=== PATIENT | female | born 1995 | race Caucasian/White ===

== ENCOUNTER 2019-12-30 16:55 | Emergency (ER) | payer MEDICAID ==
[~2019-12-30] VITALS: Ht 167.6 cm; Wt 67.1 kg
[~2019-12-30 16:55] MED LIST: ACET-1603; IBUP200C14; ONDA-144; [UNRECOGNIZED DRUG - CODE]
[2019-12-30 17:20] VITALS: BP 122/83
== END 2019-12-30 19:46 | disposition home or self-care (01) ==
LOC: ER 16:55
DX: Z48.01 Encounter for change or removal of surgical wound dressing (principal); M25.562 Pain in left knee; Z79.899 Other long term (current) drug therapy; Z98.890 Other specified postprocedural states

== ENCOUNTER 2021-09-28 15:15 | Emergency (ER) | payer MEDICAID ==
[~2021-09-28] VITALS: Ht 172.7 cm; Wt 70.8 kg
[2021-09-28 15:18] VITALS: BP 128/81
[2021-09-28] MEDS ORDERED: ONDANSETRON ODT 4 MG TAB PO ONE (17:30)
[2021-09-28] MEDS ORDERED: KETOROLAC TROMETH 60MG/2ML VIAL IM ONE (17:30)
[2021-09-28] MEDS ORDERED: IBUP800T27 PO (17:49)
== END 2021-09-28 17:56 | disposition home or self-care (01) ==
LOC: ER 15:15
DX: M23.92 Unspecified internal derangement of left knee (principal); Z79.1 Long term (current) use of non-steroidal anti-inflammatories (NSAID); Z79.899 Other long term (current) drug therapy; Z79.2 Long term (current) use of antibiotics
CPT/HCPCS: 73562; 96372; 99283; J1885; Q0162

== ENCOUNTER 2022-02-11 18:54 | Emergency (ER) | payer MEDICAID ==
[~2022-02-11] VITALS: Ht 170.2 cm; Wt 68.2 kg
[~2022-02-11 18:54] MED LIST changes: +IBUP800T27 PO
[2022-02-11 20:07] LABS: Basophils # (auto) 0.1 10 ^3/uL (0-0.2); Basophils % (auto) 0.3 % (0.0-2.0); Eosinophils # (auto) 0 10 ^3/uL (0-0.8); Eosinophils % (auto) 0.1 % (0.0-7.0); Hematocrit 42.2 % (36.0-46.0); Hemoglobin 13.7 g/dL (12.2-16.2); Lymphocytes # (auto) 0.6 10 ^3/uL (0.4-5.4); Lymphocytes % (auto) 3.1 % (10.0-50.0); Mean Corpuscular Hgb Conc. 32.4 g/dL (32.0-36.0); Mean Corpuscular Volume 89.2 fL (80.0-100.0); Monocytes # (auto) 0.8 10 ^3/uL (0-1.3); Monocytes % (auto) 3.9 % (0.0-12.0); Neutrophils # (auto) 19.2 10 ^3/uL (1.6-8.6); Neutrophils % (auto) 92.6 % (37.0-80.0); Red Blood Cells 4.73 10^6/uL (4.0-5.20); White Blood Cell 20.8 10^3/uL (4.4-10.8)
[2022-02-11 20:09] LABS: Urine Bacteria FEW /hpf (None Seen); Urine Blood Negative /uL (Negative); Urine Mucus FEW (None Seen); Urine Specific Gravity 1.024 (1.001-1.035); Urine WBC 1 /hpf (0 - 5)
[2022-02-11 20:30] LABS: Albumin 4.4 g/dL (3.4-5.0); Calcium 8.9 mg/dL (8.5-10.1); Potassium 4.1 mmol/L (3.5-5.1)
[2022-02-11 20:32] LABS: BUN/Creatinine Ratio 9.4
[2022-02-11 20:35] LABS: Bilirubin, Total 0.6 mg/dL (0.2-1.0); Total Protein 8.1 g/dL (6.4-8.2)
[2022-02-12] MEDS ORDERED: ONDANSETRON ODT 4 MG TAB PO ONE (05:30)
[2022-02-12] MEDS ORDERED: metroNIDAZOLE 500 MG TAB PO ONE (05:30)
[2022-02-12] MEDS ORDERED: PERCOT PO (05:33)
[2022-02-12] MEDS ORDERED: CIPR-173 PO (05:33)
[2022-02-12] MEDS ORDERED: METR500T PO (05:33)
[2022-02-12 05:52] VITALS: BP 112/66
== END 2022-02-12 05:59 | disposition home or self-care (01) ==
LOC: ER 18:54
DX: K52.9 Noninfective gastroenteritis and colitis, unspecified (principal); D72.829 Elevated white blood cell count, unspecified
CPT/HCPCS: 36415; 74176; 80053; 81001; 85025; 99284; Q0162